=== PATIENT | female | born 1975 | race Caucasian/White ===

== ENCOUNTER 2017-03-22 09:35 | Outpatient (CLI) | payer BC ==
--- NOTE | 2017-03-22 11:39 | RAD ---
FLUOROSCOPIC GUIDED HYSTEROSALPINGOGRAM: HISTORY: N97.1. Infertility. COMPARISON: None. FINDINGS: The patient was brought to the fluoroscopy suite. All questions were answered. The patient's external genitalia was prepped and draped in normal sterile fashion. Subsequently, aft er speculum insertion, the patient's external cervical os as cleansed with iodine. The os was dilate d using a dilator. Next, the catheter was inserted to the cervix. Contrast instilled retrograde. T he left fallopian tube is patent with free flow of contrast. No cavity. There is bulbous dilatation of the right distal fallopian tube which does not have free spillage of contrast. IMPRESSION: Occluded distal right fallopian tube. Left fallopian tube is patent. POS: GO
== END 2017-03-22 09:36 | disposition home or self-care (01) ==
LOC: RAD 09:35
PROVIDERS: ATTEND Obstetrics & Gynecology Reproductive Endocrinology
DX: N97.1 Female infertility of tubal origin (principal)
CPT/HCPCS: 58340; 74740

== ENCOUNTER 2018-08-28 12:34 | Outpatient (CLI) | payer BC | END 2018-08-28 12:35 | disposition home or self-care (01) | LOC: ULT 12:34 | PROVIDERS: ATTEND Family Medicine | DX: R01.1 Cardiac murmur, unspecified (principal); I08.1 Rheumatic disorders of both mitral and tricuspid valves | CPT/HCPCS: 93306 ==

== ENCOUNTER 2018-09-26 15:20 | Outpatient (CLI) | payer BC ==
--- NOTE | 2018-09-26 17:04 | ULT ---
OB ULTRASOUND: 09/26/18 HISTORY: . Evaluate anatomy. COMPARISON: None. FINDINGS: There is a single intrauterine gestation in breech presentation. Cardiac Doppler does demonstrate fet al heart tones with a heart rate of 152 beats per minute. The placenta is located anteriorly wi th findings suggestive of at least marginal placenta previa. The cervical length based on transabdomi nal imaging is 5.8 cm. Amniotic fluid index is calculated at 12.04 cm. measurements: Biparietal diameter 5.09 cm 21 weeks, 3 days Head circumference 20.22 cm 22 weeks, 3 days Abdominal circumference 17.14 cm 22 weeks, 1 day Femur length 3.46 cm 21 weeks The gestational age by ultrasound of 21 weeks and 6 days with RAÚL on 01/31/19. The gestational age by the last menstrual period is 21 weeks and 2 days. The estimated weight by ultrasound is 439 grams (15 oz). This represents 63 percentile for feta l weight. There is limited evaluation of anatomical structures due to depth of fetus on transabdominal im aging. However, there is suggestion of a four chambered heart, and the stomach and bilateral kidneys as well as decompressed urinary bladder demonstrate a normal CT appearance. A three vessel cord is no t visualized, but there is flow on either side of the urinary bladder which suggests a three vessel c ord. Cord insertion is not well visualized. The visualized spine has a normal sonographic appearance. Cerebellum is not well visualized due to imaging. No definitive anomalies can be detected on t his exam. IMPRESSION: 1. Evidence of at least a marginal placenta previa. The urinary bladder is distended on provided images. This may potentially result in the appearance of a marginal placenta previa. However, based on this examination, marginal placenta previa is suggested, and follow-up ultrasound examination in 4 to 6 weeks is recommended for further evaluation. 2. Single intrauterine gestation in breech presentation with heart tones documented. Gesta tional age by ultrasound is 21 weeks and 6 days with RAÚL on 01/31/19. 3. Estimated weight by ultrasound is 439 grams (15 oz). 4. Amniotic fluid index is calculated at 12.04 cm. POS: [facility]
== END 2018-09-26 15:21 | disposition home or self-care (01) ==
LOC: BICULT 15:20
PROVIDERS: ATTEND Family Medicine
DX: Z34.82 Encounter for supervision of other normal pregnancy, second trimester (principal); Z3A.21 21 weeks gestation of pregnancy
CPT/HCPCS: 76805

== ENCOUNTER 2018-11-02 14:02 | Outpatient (CLI) | payer BC ==
--- NOTE | 2018-11-02 15:09 | ULT ---
ULTRASOUND OBSTETRICAL COMPLETE: DATE: 11/02/2018 HISTORY: 43 year old female with hypertension. Follow-up marginal placenta previa. COMPARISON: 09/26/2018 FINDINGS: number: kraft lie: Transverse, with head to maternal right. Maternal cervix: 4.5 cm. Closed. Placenta: Anterior and low-lying. The inferior tip of the placenta no longer reaches the internal cer vical os. It is currently approximately 3 to 3.5 cm proximal from the internal cervical os. Amniotic fluid volume: MICH = 15cm heart rate: 143 bpm anatomy was not evaluated in detail. biometry: Biparietal diameter (BPD): 7.1 cm 28 w 3 d Head circumference (HC): 26.7 cm 29 w 1 d Abdominal circumference (AC): 23.0 cm 27 w 2 d Femur length (FL): 4.9 cm 26 w 3 d Average ultrasound age (AUA): 28 w 0 d Estimated date of delivery (RAÚL): 01/25/2019 Estimated weight (EFW): 1047 g +/- 155 g IMPRESSION: 1) Live 3rd trimester intrauterine gestation. 2) Estimated gestational age of 28 weeks, 0 days 3) transverse lie. 4) no placenta previa.
== END 2018-11-02 14:03 | disposition home or self-care (01) ==
LOC: SCSULT 14:02
PROVIDERS: ATTEND Family Medicine
DX: O16.3 Unspecified maternal hypertension, third trimester (principal); Z3A.28 28 weeks gestation of pregnancy
CPT/HCPCS: 76816

== ENCOUNTER 2018-12-10 10:41 | Day surgery (SDC) | payer BC ==
[2018-12-10] MEDS ORDERED: Iron Sucrose Complex 500 MG in Sodium Chloride 0.9% 250 ML 250 ML IVPB SCH (11:38)
[2018-12-10] MEDS ORDERED: Acetaminophen 500 MG TAB PO PRN (11:38)
[2018-12-10 11:51] VITALS: BMI 43.9
[2018-12-10] MEDS ORDERED: hydrALAZINE 25 MG TAB PO SCH (14:45)
[2018-12-10 15:13] VITALS: BP 150/86
== END 2018-12-10 17:50 | disposition home health service (06) ==
LOC: L&D/OP 10:41
PROVIDERS: ATTEND Family Medicine
DX: O99.019 Anemia complicating pregnancy, unspecified trimester (principal); D64.9 Anemia, unspecified; O09.90 Supervision of high risk pregnancy, unspecified, unspecified trimester; Z3A.00 Weeks of gestation of pregnancy not specified
CPT/HCPCS: 36415; 80053; 82570; 84156; 85025; 96361; 96365; 96366; 99282; J1756; J7050

== ENCOUNTER 2021-07-27 08:30 | Outpatient (CLI) | payer BC | END 2021-07-27 08:31 | disposition home or self-care (01) | LOC: BICMAMMO 08:30 | PROVIDERS: ATTEND Family Medicine | DX: Z12.31 Encounter for screening mammogram for malignant neoplasm of breast (principal); Z80.3 Family history of malignant neoplasm of breast | CPT/HCPCS: 77063; 77067 ==

== ENCOUNTER 2022-11-08 08:37 | Outpatient (CLI) | payer BC | END 2022-11-08 08:38 | disposition home or self-care (01) | LOC: BICMAMMO 08:37 | PROVIDERS: ATTEND Family Medicine | DX: Z12.31 Encounter for screening mammogram for malignant neoplasm of breast (principal); Z80.3 Family history of malignant neoplasm of breast | CPT/HCPCS: 77063; 77067 ==

== ENCOUNTER 2024-01-01 06:55 | Outpatient (CLI) | payer BC | END 2024-01-01 06:56 | disposition home or self-care (01) | LOC: BICULT 06:55 | PROVIDERS: ATTEND Family Medicine | DX: R79.89 Other specified abnormal findings of blood chemistry (principal); R16.0 Hepatomegaly, not elsewhere classified; R93.2 Abnormal findings on diagnostic imaging of liver and biliary tract | CPT/HCPCS: 76700 ==

== ENCOUNTER 2024-01-31 08:07 | Outpatient (CLI) | payer BC | END 2024-01-31 08:08 | disposition home or self-care (01) | LOC: BICMAMMO 08:07 | PROVIDERS: ATTEND Family Medicine | DX: Z12.31 Encounter for screening mammogram for malignant neoplasm of breast (principal); Z80.3 Family history of malignant neoplasm of breast | CPT/HCPCS: 77063; 77067 ==